=== PATIENT | female | born 1970 | race Two or more races ===

== ENCOUNTER 2018-07-08 10:36 | Emergency (ER) | payer SELFPAY ==
[~2018-07-08] VITALS: Ht 177.8 cm; Wt 69.0 kg
[2018-07-08 11:23] LABS: BASOPHILS % 0.4 % (0.0-2.0); EOSINOPHILS % 2.2 % (0.0-5.0); HEMATOCRIT. 40.2 % (36.0-48.0); HEMOGLOBIN. 13.3 g/dL (12.0-16.0); LYMPHOCYTES % 19.2 % (20.0-50.0); MEAN CORPUSCULAR HEMOGLOBIN 30.8 pg (28.0-32.0); MEAN CORPUSCULAR VOLUME 92.9 fL (81.0-99.0); MEAN PLATELET VOLUME 8.8 fl (7.4-10.4); MONOCYTES % 9.8 % (2.0-8.0); NEUTROPHILS % 68.4 % (40.0-76.0); PLATELET 274 x1000/uL (130-400); RED BLOOD CELL COUNT 4.33 mill/uL (4.2-5.4); RED CELL DISTRIBUTION WIDTH 13.7 % (11.6-14.6)
[2018-07-08 11:34] LABS: D-DIMER < 0.19 mg/L FEU (<0.50); HCG SCREEN NEGATIVE; PARTIAL THROMBOPLASTIN TIME 25.2 sec (23.4-31.0); PROTHROMBIN TIME 9.6 sec (9.1-11.1)
[2018-07-08 12:32] LABS: CHLORIDE 110 mEq/L (98-107)
[2018-07-08] MEDS ORDERED: KETOROLAC 30MG/ML VIAL IV NR (14:45)
[2018-07-08 16:51] VITALS: BP 130/80
== END 2018-07-08 16:52 | disposition home or self-care (01) ==
LOC: ER 10:36
DX: R07.89 Other chest pain (principal); M79.651 Pain in right thigh; M79.89 Other specified soft tissue disorders; D64.9 Anemia, unspecified; R07.81 Pleurodynia; Z86.718 Personal history of other venous thrombosis and embolism; Z90.710 Acquired absence of both cervix and uterus; Z98.890 Other specified postprocedural states; Z91.040 Latex allergy status
CPT/HCPCS: 36415; 71045; 80053; 81025; 83880; 84484; 84703; 85025; 85379; 85610; 85730; 93005; 93970; 96374; 99284; J1885